=== PATIENT | male | born 1985 ===

== ENCOUNTER → 2023-12-19 10:20 | Outpatient (REF) | payer OTHER, SELFPAY ==
[2023-12-19 12:38] LABS: ALT (SGPT) 20 U/L (0-50); AST (SGOT) 28 U/L (17-59); Albumin 4.8 g/dl (3.5-5.0); Alkaline Phosphatase 43 U/L (38-126); Blood Urea Nitrogen 21 mg/dl (9-20); Calcium 10.1 mg/dl (8.4-10.2); Carbon Dioxide 25 mmol/L (22-30); Chloride 106 mmol/L (98-107); Glucose 91 mg/dl (70-99); HDL Cholesterol 62 mg/dl; LDL Cholesterol, Calculated 134 mg/dl; Magnesium 1.9 mg/dl (1.6-2.3); Potassium 4.4 mmol/L (3.5-5.1); Sodium 138 mmol/L (135-145); Total Bilirubin 0.6 mg/dl (0.2-1.3); Total Cholesterol 219 mg/dl (50-199); Total Protein 7.9 g/dl (6.3-8.2); Triglyceride 116 mg/dl (10-149); Very Low Density Lipoprotein 23 mg/dl (0-30); eGFR > 60.00
[2023-12-19 12:43] LABS: TSH 3.52 uIU/ml (0.47-4.68)
[2023-12-20 02:43] LABS: CRP, Highly Sensitive < 0.34 mg/L
[2023-12-20 18:29] LABS: Apolipoprotein B 114 mg/dL (66-133)
[2023-12-20 18:47] LABS: Lipoprotein a (Lp a) 57 mg/dL (<=29)
[2023-12-21 17:01] LABS: Zinc 92.3 ug/dL (60.0-120.0)
== END ==
LOC: REG 10:20
PROVIDERS: ATTENDING PHYSICIAN Internal Medicine
DX: E78.2 Mixed hyperlipidemia (principal); G47.9 Sleep disorder, unspecified
CPT/HCPCS: 36415; 80053; 80061; 82172; 83695; 83735; 84443; 84630; 86141